=== PATIENT | female | born 1980 | race Caucasian/White ===

== ENCOUNTER 2024-10-24 10:20 | Emergency (ER) | payer OTHER, SELFPAY ==
[2024-10-24 10:29] VITALS: BP 120/82; PULSE 80; TEMP 36.7; O2SAT 96; BMI 46.9
--- OUTSIDE RECORDS SUMMARY | 2024-10-24 10:32 | XMS_ITS | Encounter Summary ---
Author Organization [facility] Address [address] [place] [address] Care Team Providers Care Stockbroking Dealer Name Role Phone Susan Lynn DO Primary Care Provider + Tiffanie Cruz NP Primary Care Provider + [phone] Source Comments In the event this information is protected by the Federal Confidentiality of Alcohol and Drug AbusePatient Records regulations: The Federal rules restrict any use of the information to criminally investigate or prosecute any alcohol or drug abuse patient.[facility] Encounter Details Date Type Department Care Team (Late st Contact Info) Description 11/05/2017 Get Medical Advice Internal Medicine [place] [address] [place] [address] [place] [address] [place] [address] Test Result Question Social History Tobacco Use Types Packs/Day Years Used Date Smoking Tobacco: Never Smokeless Tobacco: Never Alcohol Use Standard Drinks/Week Comments Yes 0 (1 standard drink = 0.6 oz pur e alcohol) occasional PHQ-2 Answer Date Recorded PHQ-2 score 0 10/12/2017 Comments No Sex and Gender Information Value Date Recorded Sex Assigned at Not on file Legal Sex Female 9:12 AM EST Gender Identity Not on file Sexual Orientation Not on file 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
--- OUTSIDE RECORDS SUMMARY | 2024-10-24 10:32 | XMS_ITS | Encounter Summary ---
Author Organization [facility] Address [address] [place] [address] Care Team Providers Care Supervisor Photostat Name Role Phone Susan Lynn DO Primary Care Provider + Tiffanie Cruz NP Primary Care Provider + [phone] Source Comments In the event this information is protected by the Federal Confidentiality of Alcohol and Drug AbusePatient Records regulations: The Federal rules restrict any use of the information to criminally investigate or prosecute any alcohol or drug abuse patient.[facility] Encounter Details Date Type Department Care Team (Late st Contact Info) Description 11/16/2017 Patient Msg Internal Medicine [place] [address] [place] [address] [place] [address] [place], [place] [id number] RE:Results Social History Tobacco Use Types Packs/Day Years [...] on filedocumented in this encounter Care Teams Supervisor Photostat Relationship Specialty Start Date End Date Susan Lynn DO [address] [place] [address] PCP - General Internal Medicine 10/12/17 12/22/22 Tiffanie Cruz NP [address] [place] [address] PCP - General 12/23/22 documented as of this encounter
--- OUTSIDE RECORDS SUMMARY | 2024-10-24 10:32 | XMS_ITS | Clinical Summary ---
Author Organization [facility] Address [address] [place], [place] [id number] Care Team Providers Care Pension Adviser Name Role Phone Tiffanie Cruz NP Primary Care Provider + [phone] Allergies Active Allergy Reactions Criticality Noted Date Comments Amoxicillin Other: See Comments 10/29/2019 nausea Medications No known medications Active Problems Problem Noted Date Diagnosed Date Family history of thyroid disease in mother 09/20 Class 3 severe obesity due t o excess calories without serious comorbidity with body mass index (BMI) of 40.0 to 44.9 in adult 10/12/2017 Immunizations Immunization Administration Dates Next Due influenza (IIV4) vaccine, ag e 6 mo - 64 yr, quadrivalent (AFLURIA, FLULAVAL, FLUZONE) 01/21/2019 Family History Medical History Relation Comments Leukemia AML Father Thyroid tor's Mother Relation Status Comments Brother Alive Father Mother Alive Social History Tobacco Use Types Packs/Day Years Used Date Smoking Tobacco: Never Smokeless Tobacco: Never Alcohol Use Standard Drinks/Week Comments Yes 0 (1 standard drink = 0.6 oz pur e alcohol) occasional PHQ-2 Answer Date Recorded PHQ-2 score 0 10/12/2017 Area Deprivation Index Answer Date Manolo rded National Score (1-100), lower number is lower ri sk 68 12/14/2022 State Score (1-10), lower number is lower risk 5 12/14/2022 Data from: https://www.neighborhoodatlas.medicine.[facility].edu/. 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 on file Last Filed Vital Signs Vital Sign Reading Time Taken Comments Blood Pressure 114/60 10/29/2019 11:46 AM EDT Pulse 77 10/29/2019 11:46 AM EDT Temperature 37.2 C (98.9 F) 10/29/2019 11:46 AM EDT Respiratory Rate 18 10/29/2019 11:46 AM EDT Oxygen Saturation 97% 10/29/2019 11:46 AM EDT Inhaled Oxygen Concentration - - Weight 95.3 kg (210 lb) 10/12/2017 8:28 AM EDT Height 152.4 cm (5') 10/12/2017 8:28 AM EDT Body Mass Index 41.01 10/12/2017 8:28 AM EDT Plan of Treatment Health Maintenance Due Date Last Done Comments Anxiety Screening 1996 Depression Screening 1996 HIV Screening 1996 Hepatitis C Screening 1996 DTaP,Tdap,Td Vaccine (1 - Tdap) 1997 Hepatitis B Vaccine (1 of 3 - 19+ 3-dose series) 1997 Cervical Cancer Screening [address] Colonography 2023 Cologuard (FIT-DNA) 2023 Colonoscopy 2023 Colorectal Cancer Screening 2023 Diabetes Screening 2023 10/29/2017, 1 03/28/2016, 11/10/2007 Fecal Occult Blood 2023 Lipid Screening 2023 10/29/2017 Sigmoidoscopy 2023 Influenza Vaccine (#1) 2024 2, 01/06/2021, 01/06/2020, Additional history exists Procedures Procedure Name Priority Date/Time Associated Diagnosis Comments COMPREHENSIVE METABOLIC PANEL Routine 10/29/2017 10:04 AM EDT Routine adult health maintenance LIPID PANEL, FASTING Routine 10/29/2017 10:04 AM EDT Screening for lipoid disorders from Last 3 Months or Most Recently Relevant to Health Maintenance Results * (ABNORMAL) LIPID PANEL BASIC (10/29/2017 10:04 AM EDT) Cholesterol, Total 178 <200 mg/dL 10/29/2017 4:38 PM [facility] Comment: <200 mg/dL, Desirable 200-239 mg/dL, Borderline high >239 mg/dL, High Triglyceride 63 <150 mg/dL 10/29/2017 4:38 PM T [facility] Comment: <150 mg/dL, Normal 150-199 mg/dL, Borderline high 200-499 mg/dL, High >499 mg/dL, Very high HDL Cholesterol 54 >39 mg/dL 8 4:38 PM [facility] Comment: 40-59 mg/dL, Acceptable >59 mg/dL, High: Negative risk factor for coronary heart disease <40 mg/dL, Low: Positive risk factor for coronary heart disease LDL Cholesterol, Calculated 111(H) <100 mg/dL 10/29/2017 4:38 PM [facility] Comment: <100 mg/dL, Optimal 100-129 mg/dL, Near optimal/above optimal 130-159 mg/dL, Borderline high 160-189 mg/dL, High >189 mg/dL, Very high Secondary prevention optimal LDL Cholesterol levels are recommended to be < 70 mg/dL Non HDL Cholesterol 124 <130 mg/dL 10/29/2017 4:38 PM [facility] Comment: <130 mg/dL, Optimal 130-159 mg/dL, Near optimal/above optimal 160-189 mg/dL, Borderline high 190-219 mg/dL, High >219 mg/dL, Very high Secondary prevention optimal non HDL Cholesterol levels are recommended to be < 100 mg/dL Fasting Time 12 hrs 10/29/2017 10:05 AM T [facility] VLDL Cholesterol 13 <30 mg/dL 10/30/19 18 4:38 PM [facility] TC:HDL Ratio 3.30 <5.10 10/29/2017 4:38 PM [facility] LDL:HDL Ratio 2.06 <2.54 10/29/2017 4:38 PM [facility] Comment: Reference: 1. National Cholesterol Education Program ATP III Guideline At-A-Glance Quick Desk Reference: National Heart, Lung, and Blood [place]. National Institutes of Health. 2001: NIH Publication No. 01-3305. 2. An International Atherosclerosis Society position paper: global recommendations for the management of dyslipidemia: executive summary, Atherosclerosis. 2014: 232(2):410-413. Blood specimen (specimen) BLOOD SPECIMEN / Unknown 10/29/2017 10:04 AM EDT 10/29/2017 10:06 AM EDT us Susan Lynn DO LABORATORY Final Re sult [facility] [address] [place] [address] [facility] [address] [place] [address] * (ABNORMAL) COMP METABOLIC PANEL (10/29/2017 10:04 AM EDT) Protein, Total 7.2 6.3 - 8.0 g/dL 10/29/2017 4:38 PM EDT [facility] Albumin 4.4 3.9 - 4.9 g/dL 10/29/2017 4:38 PM EDT [facility] Calcium 9.6 8.5 - 10.2 mg/dL 10/29/2017 4:38 PM EDT [facility] Bilirubin, Total 0.3 0.2 - 1.3 mg/dL 10/29/2017 4:38 PM EDT [facility] Alkaline Phosphatase 64 32 - 117 U/L 10/29/2017 4:38 PM EDT [facility] AST 24 13 - 35 U/L 10/29/2017 4:38 PM EDT [facility] Glucose 103(H) 74 - 99 mg/dL 10/29/2017 4:38 PM EDT [facility] Comment: The [place] Diabetes Association (ADA) provides guidance for cutoff values for fasting glucose and random glucose. The ADA defines fasting as no caloric intake for at least 8 hours. Fasting plasma glucose results between 100 to 125 mg/dL indicate increased risk for diabetes (prediabetes). Fasting plasma glucose results greater than or equal to 126 mg/dL meet the criteria for diagnosis of diabetes. In the absence of unequivocal hyperglycemia, results should be confirmed by repeat testing. In a patient with classic symptoms of hyperglycemia or hyperglycemic crisis, random plasma glucose results greater than or equal to 200 mg/dL meet the criteria for diagnosis of diabetes. Reference: Standards of Medical Care in Diabetes 2016, [place] Diabetes Association. Diabetes Care. 2016.39(Suppl 1). BUN 9 7 - 21 mg/dL 10/29/2017 4:38 PM [facility] Creatinine 0.57(L) 0.58 - 0.96 mg/dL 10/29/2017 4:38 PM [facility] Sodium 140 136 - 144 mmol/L 10/29/2017 4:38 PM [facility] Potassium 4.5 3.7 - 5.1 mmol/L 10/29/2017 4:38 PM [facility] Chloride 103 97 - 105 mmol/L 10/29/2017 4:38 PM [facility] CO2 23 22 - 30 mmol/L 10/29/2017 4:38 PM [facility] Anion Gap 14 9 - 18 mmol/L 10/29/2017 4:38 PM [facility] ALT 22 7 - 38 U/L 10/29/2017 4:38 PM [facility] eGFR- >60 10/29/2017 4:38 PM [facility] eGFR-All Other Races >60 . 10/29/2017 4:38 PM [facility] Comment: eGFR (Estimated GFR) Units of measure: mL/min/1.73 meters squared eGFR is derived from the reexpressed MDRD Study equation using the following parameters: serum creatinine, age, gender and race. The creatinine assay has been calibrated to be traceable to IDMS. An eGFR <60 mL/min/1.73m2 for >3 months is consistent with chronic kidney disease. Refer to KDOQI guidelines for clinical interpretation. In patients with unstable renal function, e.g. those with acute kidney injury, the eGFR may not accurately reflect actual GFR. Blood specimen (specimen) BLOOD SPECIMEN / Unknown 10/29/2017 10:04 AM EDT 10/29/2017 10:06 AM EDT us Susan Lynn DO LABORATORY Final Re sult [facility] [address] [place] [address] from Last 3 Months or Most Recently Relevant to Health Maintenance Insurance O [employer] PPO Care Teams Pension Adviser Relationship Specialty Start Date End Date Tiffanie Cruz NP [address] [place] [address] PCP - General 12/23/22
--- OUTSIDE RECORDS SUMMARY | 2024-10-24 10:32 | XMS_ITS | Clinical Summary ---
Author Organization [facility] tem Address [id number] [place] [address] Care Team Providers Care Thread Grinder Name Role Phone Unavailable Primary Care Provider Unavailabl e Social History Tobacco Use Types Packs/Day Years Used Date Smoking Tobacco: Never Assessed Childcare Answer Date Recorded Childcare Unknown 08/31/2018 Employment Answer Date Recorded Employment Unknown 08/31/2018 Comments Unknown Sex and Gender Information Value Date Recorded Sex Assigned at Not on file Legal Sex Female 10:02 AM EST Gender Identity Not on file Sexual Orientation Not on file Last Filed Vital Signs Vital Sign Reading Time Taken Comments Blood Pressure 127/73 01/19/2016 2:40 PM EDT Pulse 85 01/19/2016 2:40 PM EDT Temperature - - Respiratory Rate - - Oxygen Saturation - - Inhaled Oxygen Concentration - - Weight 89.6 kg (197 lb 8 oz) 01/19/2016 2:40 PM EDT Height 152.4 cm (5') 01/19/2016 2:40 PM EDT Body Mass Index 38.57 01/19/2016 2:40 PM EDT Plan of Treatment Not on file Medical Devices Not on file
--- NOTE | 2024-10-24 10:39 | XR_ITS ---
The [address] [address] Patient Name: ANAHY AGUSTIN MRN: [id number] date: 1980 Sex: F Assigned Patient Location: ER Current Patient Location: ER Accession/Order Number: [id number] Exam Date: 10/24/2024 11:09 Report Date: 10/24/2024 11:09 At the request of: MILDRED BARROW MD Procedure: XR knee RT 3V RIGHT KNEE - 3 views CLINICAL HISTORY: Right knee pain for 2 weeks. COMPARISON: None FINDINGS: No knee joint effusion. Minimal degenerative change without acute bony process. XR/XR knee RT 3V IMPRESSION: MINIMAL DEGENERATIVE CHANGE INVOLVING THE RIGHT KNEE WITHOUT ACUTE BONY PROCESS. Impression dictated by: Lew Zavaleta Jr., DJanetOJanet 10/24/2024 11:09 AM Dictation Location: [place] [address] Electronically authenticated by: [id number] Y Date: 10/24/2024 11:09
--- NOTE | 2024-10-24 12:14 | ED_ITS ---
HPI HPI - Extremity Injury (Lower) General Chief Complaint: Extremity Injury, Lower Stated Complaint: CANNOT BEND R KNEE Time Seen by Provider: 10/24/24 11:28 Source: patient Mode of arrival: walk-in History of Present Illness HPI Narrative: The patient presents to us with a few days history of right knee pain, that is not caused by any fall or trauma she mentioned that she is not able to bend her knee fully and she noted that few days ago when she was moving around, denies any fall or trauma and she denies any similar presentation although she did had some pain before in her knee but right now the pain is consistent and it is a lot better whenever she extend her knee She still able to put weight on her knee but with no flexion Related Data Previous Rx's ?Medication ?Instructions ?Recorded diclofenac sodium 75 mg 75 mg PO BID PRN pain #20 ta bs 10/24/24 tablet,delayed release Allergies Allergy/AdvReac Type Severity Reaction Status Date / Time No Known Drug Allergies Allergy Verified 10/24/24 10:29 Opioid HPI Opioid Management Most Recent Pain and Opioid Data: Last Pain Scale 7 Today, 10:29 Last MAY Pain Assessment Today, 12:26 Review of Systems ROS Status of ROS 10 or more systems reviewed and unremark able except as noted in history and below PFSH PFSH Social History Little interest or pleasure in doing things: not at all Feeling down, depressed, or hopeless: not at all Exam Narrative Exam Narrative: Nurses notes and vital signs reviewed and patient is not hypoxic. General: Well-appearing and in no apparent distress. Skin: Warm, dry, no pallor noted. No rash. Right lower extremity exam: No vascular injury detected the patient have mild edema of the right knee in addition to the anterior and posterior drawer signs are negative, no ecchymosis and the patient have decreased range of movement at flexion more than 45 degrees Constitutional Vital Signs, click to edit/add: Last Vital Signs Temp 98.0 F 10/24/24 10:29 Pulse 80 10/24/24 10:29 Resp 16 10/24/24 10:29 BP 120/82 10/24/24 10:29 Pulse Ox 96 10/24/24 10:29 O2 Del Method Room Air 10/24/24 10:29 Course Vital Signs Vital signs: Vital Signs Temperature 98.0 F 10/24/24 10:29 Pulse Rate 80 10/24/24 10:29 Respiratory Rate 16 10/24/24 10:29 Blood Pressure 120/82 10/24/24 10:29 Pulse Oximetry 96 10/24/24 10:29 Oxygen Delivery Method Room Air 10/24/24 10:29 Temperature 98.0 F 10/24/24 10:29 Pulse Rate 80 10/24/24 10:29 Respiratory Rate 16 10/24/24 10:29 Blood Pressure 120/82 10/24/24 10:29 Pulse Oximetry 96 10/24/24 10:29 Oxygen Delivery Method Room Air 10/24/24 10:29 MDM - Extremity Injury (Lower) MDM Narrative Medical decision making narrative: X-ray of the right knee showed no acute pathology Patient provided a knee immobilizer And Toradol in the ER Patient discharged home with a referral to orthopedic in addition to Voltaren for pain The patient to keep the knee immobilizer until she is evaluated by orthopedic The patient is to follow up with primary care physician in next 2-3 days or to return to the emergency department should any of the signs or symptoms worsen or new symptoms develop. The patient agrees with the following Diagnosis and Treatment plan and the patient will be discharged home. Discharge Plan Discharge Chief Complaint: Extremity Injury, Lower Clinical Impression: Acute knee pain, Meniscal injury Patient Disposition: Home, Self-Care Time of Disposition Decision: 12:18 Condition: Good Prescriptions / Home Meds: New diclofenac sodium 75 mg tablet,delayed release (DR/EC) 75 mg PO BID PRN (Reason: pain) Qty: 20 0RF Print Language: Latvian Instructions: Knee Pain (ED) Referrals: Physician,Non-Staff, [Primary Care Provider] - 1 week Wilfredo Parry MD [Physician, Orthopedics] - 1 week Discharge Date/Time: 10/24/24 12:45
[2024-10-24] MEDS: KETOROLAC TROMETHAMINE 60 MG/2 ML VIAL IM (12:26)
== END 2024-10-24 12:45 | disposition home or self-care (01) ==
PROVIDERS: Emergency Provider Emergency Medicine
DX: S83.8X1A Sprain of other specified parts of right knee, initial encounter (principal); X58.XXXA Exposure to other specified factors, initial encounter; M25.561 Pain in right knee
CPT/HCPCS: 73562; 96372; 99284; J1885

== ENCOUNTER 2024-11-07 10:12 | Outpatient (OUT) | payer OTHER, SELFPAY ==
--- NOTE | 2024-11-07 | XR_ITS ---
[place] [id number] Patient Name: ANAHY AGUSTIN MRN: [id number] date: 1980 Sex: F Assigned Patient Location: [facility] Current Patient Location: [facility] Accession/Order Number: [id number] Exam Date: 11/07/2024 11:34 Report Date: 11/07/2024 11:36 At the request of: DAMARIS BOOGIE MD Procedure: XR knee RT 4V Right knee, 4 views CLINICAL HISTORY: m25.561 pain in right knee COMPARISON: 10/24/2024 FINDINGS: Mild tricompartmental joint space narrowing with ossific spurring. Trace joint effusion. No fractures or dislocation. Soft tissues unremarkable. IMPRESSION: Mild degenerative changes. Negative acute osseous abnormality. Impression dictated by: Philipp Montenegro M.D. 11/07/2024 11:36 AM Dictation Location: [place] [address] Electronically authenticated by: [id number] Y Date: 11/07/2024 11:36
--- NOTE | 2024-11-07 | XR_ITS ---
The [address] [address] Patient Name: ANAHY AGUSTIN MRN: [id number] date: 1980 Sex: F Assigned Patient Location: RAD Current Patient Location: [facility] Accession/Order Number: [id number] Exam Date: 11/07/2024 11:36 Report Date: 11/07/2024 11:37 At the request of: DAMARIS BOOGIE MD Procedure: XR pelvis 1-2V AP PELVIS: CLINICAL HISTORY: m25.561 pain in right knee COMPARISON: None Mild joint space narrowing involving both hips. [id number] spurring sacroiliac joints right greater than left. No fractures or dislocation identified. XR/XR pelvis 1-2V IMPRESSION: NO ACUTE BONY FINDINGS. MILD DEGENERATIVE CHANGE Impression dictated by: Philipp Montenegro M.D. 11/07/2024 11:37 AM Dictation Location: [place] [address] Electronically authenticated by: [id number] Y Date: 11/07/2024 11:37
--- OUTSIDE RECORDS SUMMARY | 2024-11-07 10:14 | XMS_ITS | Encounter Summary ---
Author Organization [facility] Address [address] [place] [address] Care Team Providers Care Rubber Off Name Role Phone Susan Lynn DO Primary Care Provider + Tiffanie Cruz NP Primary Care Provider + [phone] Source Comments In the event this information is protected by the Federal Confidentiality of Alcohol and Drug AbusePatient Records regulations: The Federal rules restrict any use of the information to criminally investigate or prosecute any alcohol or drug abuse patient.[facility] Encounter Details Date Type Department Care Team (Late st Contact Info) Description 11/05/2017 Get Medical Advice Internal Medicine [place] [address] [place] [address] [place] [address] [place] [address] Test Result Question Social History Tobacco Use [...] on filedocumented in this encounter Care Teams Rubber Off Relationship Specialty Start Date End Date Susan Lynn DO [address] [place] [address] PCP - General Internal Medicine 10/12/17 12/22/22 Tiffanie Cruz NP [address] [place] [address] PCP - General 12/23/22 documented as of this encounter
--- OUTSIDE RECORDS SUMMARY | 2024-11-07 10:14 | XMS_ITS | Clinical Summary ---
Author Organization [employer] [facility] tem Address [id number] [place] [address] Care Team Providers Care Cherry Pitter Name Role Phone Unavailable Primary Care Provider [...]
--- OUTSIDE RECORDS SUMMARY | 2024-11-07 10:14 | XMS_ITS | Encounter Summary ---
Author Organization [facility] Address [address] [place] [address] Care Team Providers Care Model And Dye Person Name Role Phone Susan Lynn DO Primary Care Provider + Tiffanie Cruz NP Primary Care Provider + [phone] Source Comments In the event this information is protected by the Federal Confidentiality of Alcohol and Drug AbusePatient Records regulations: The Federal rules restrict any use of the information to criminally investigate or prosecute any alcohol or drug abuse patient.[facility] Encounter Details Date Type Department Care Team (Late st Contact Info) Description 11/16/2017 Patient Msg Internal Medicine [place] [address] [place] [address] [place] [address] [place], [place] [id number] RE:Results Social History Tobacco Use Types Packs/Day [...] on filedocumented in this encounter Care Teams Model And Dye Person Relationship Specialty Start Date End Date Susan Lynn DO [address] [place] [address] PCP - General Internal Medicine 10/12/17 12/22/22 Tiffanie Cruz NP [address] [place] [address] PCP - General 12/23/22 documented as of this encounter
--- OUTSIDE RECORDS SUMMARY | 2024-11-07 10:14 | XMS_ITS | Clinical Summary ---
Author Organization [facility] Address [address] [place], [place] [id number] Care Team Providers Care Order Clerk Name Role Phone Tiffanie Cruz NP Primary Care Provider + [phone] Allergies Active Allergy Reactions Criticality Noted Date [...] is lower risk 5 12/14/2022 Data from: https://www.[email or web address].medicine.[email or web address].edu/. Last address used for calculation [facility] [place] 12/14/2022 Comments No Sex and Gender Information [...] Total 178 <200 mg/dL 10/29/2017 4:38 PM [facility] Comment: <200 mg/dL, Desirable 200-239 mg/dL, Borderline high >239 mg/dL, High Triglyceride 63 <150 mg/dL 10/29/2017 4:38 PM T [facility] Comment: <150 mg/dL, Normal 150-199 mg/dL, Borderline high 200-499 mg/dL, High >499 mg/dL, Very high HDL Cholesterol 54 >39 mg/dL 8 4:38 PM [facility] Comment: 40-59 mg/dL, Acceptable >59 mg/dL, High: Negative risk factor for coronary heart disease <40 mg/dL, Low: Positive risk factor for coronary heart disease LDL Cholesterol, Calculated 111(H) <100 mg/dL 10/29/2017 4:38 PM [facility] Comment: <100 mg/dL, Optimal 100-129 mg/dL, Near optimal/above optimal 130-159 mg/dL, Borderline high 160-189 mg/dL, High >189 mg/dL, Very high Secondary prevention optimal LDL Cholesterol levels are recommended to be < 70 mg/dL Non HDL Cholesterol 124 <130 mg/dL 10/29/2017 4:38 PM [facility] Comment: <130 mg/dL, Optimal 130-159 mg/dL, Near optimal/above optimal 160-189 mg/dL, Borderline high 190-219 mg/dL, High >219 mg/dL, Very high Secondary prevention optimal non HDL Cholesterol levels are recommended to be < 100 mg/dL Fasting Time 12 hrs 10/29/2017 10:05 AM T [facility] VLDL Cholesterol 13 <30 mg/dL 10/30/19 18 4:38 PM [facility] TC:HDL Ratio 3.30 <5.10 10/29/2017 4:38 PM [facility] LDL:HDL Ratio 2.06 <2.54 10/29/2017 4:38 PM [facility] Comment: Reference: 1. National Cholesterol Education Program ATP III Guideline At-A-Glance Quick Desk Reference: National Heart, Lung, and Blood [place]. National Institutes of Health. 2001: NIH Publication No. 01-3305. 2. An International Atherosclerosis Society position paper: global recommendations for the management of dyslipidemia: executive summary, Atherosclerosis. 2014: 232(2):410-413. Blood specimen (specimen) BLOOD SPECIMEN / Unknown 10/29/2017 10:04 AM EDT 10/29/2017 10:06 AM EDT us Susan Lynn DO LABORATORY Final Re sult [facility] [address] [place] [address] [facility] [address] [place] [address] * (ABNORMAL) COMP METABOLIC PANEL (10/29/2017 10:04 AM EDT) Protein, Total 7.2 6.3 - 8.0 g/dL 10/29/2017 4:38 PM EDT [facility] Albumin 4.4 3.9 - 4.9 g/dL 10/29/2017 4:38 PM EDT [facility] Calcium 9.6 8.5 - 10.2 mg/dL 10/29/2017 4:38 PM EDT [facility] Bilirubin, Total 0.3 0.2 - 1.3 mg/dL 10/29/2017 4:38 PM EDT [facility] Alkaline Phosphatase 64 32 - 117 U/L 10/29/2017 4:38 PM EDT [facility] AST 24 13 - 35 U/L 10/29/2017 4:38 PM EDT [facility] Glucose 103(H) 74 - 99 mg/dL 10/29/2017 4:38 PM EDT [facility] Comment: The [place] Diabetes Association (ADA) provides guidance for cutoff [...] Standards of Medical Care in Diabetes 2016, [place] Diabetes Association. Diabetes Care. 2016.39(Suppl 1). BUN 9 7 - 21 mg/dL 10/29/2017 4:38 PM [facility] Creatinine 0.57(L) 0.58 - 0.96 mg/dL 10/29/2017 4:38 PM [facility] Sodium 140 136 - 144 mmol/L 10/29/2017 4:38 PM [facility] Potassium 4.5 3.7 - 5.1 mmol/L 10/29/2017 4:38 PM [facility] Chloride 103 97 - 105 mmol/L 10/29/2017 4:38 PM [facility] CO2 23 22 - 30 mmol/L 10/29/2017 4:38 PM [facility] Anion Gap 14 9 - 18 mmol/L 10/29/2017 4:38 PM [facility] ALT 22 7 - 38 U/L 10/29/2017 4:38 PM [facility] eGFR- >60 10/29/2017 4:38 PM [facility] eGFR-All Other Races >60 . 10/29/2017 4:38 PM [facility] Comment: eGFR (Estimated GFR) Units [...] Susan Lynn DO LABORATORY Final Re sult [facility] [address] [place] [address] from Last 3 Months or Most Recently Relevant to Health Maintenance Insurance [employer] Care Teams Order Clerk Relationship Specialty Start Date End Date Tiffanie Cruz NP [address] [place] [address] PCP - General 12/23/22
== END 2024-11-07 10:13 | disposition home or self-care (01) ==
LOC: RAD 10:12
PROVIDERS: Visit Provider Orthopaedic Surgery
DX: M25.561 Pain in right knee (principal)
CPT/HCPCS: 72170; 73564